=== PATIENT | female | born 1985 | race Caucasian/White ===

== ENCOUNTER 2023-07-08 20:21 | Emergency (ER) | payer OTHER, SELFPAY ==
[2023-07-08 20:26] VITALS: BP 160/95; PULSE 105; RESP 16; TEMP 36.9; O2SAT 98; BMI 41.2
--- NOTE | 2023-07-08 20:38 | XR_ITS ---
[place] [id number] Patient Name: MADAY WITT MRN: [id number] date: 1985 Sex: F Assigned Patient Location: ER Current Patient Location: ED.MAIN Accession/Order Number: [id number] Exam Date: 07/08/2023 20:40 Report Date: 07/08/2023 21:44 At the request of: SILVIA BROCK Procedure: XR chest 1V EXAM: XR chest 1V , 07/08/2023 HISTORY: Cough COMPARISON: None. TECHNIQUE: Portable AP upright x-ray of the chest. FINDINGS: Cardiac silhouette within normal limits. No hilar or mediastinal enlargement. The lungs and costophrenic angles are clear. No acute osseous findings. XR/XR chest 1V IMPRESSION: No acute cardiopulmonary findings. Electronically authenticated by: LEDA LEWIS Date: 07/08/2023 21:44
--- NOTE | 2023-07-08 20:38 | ED_ITS ---
HPI - General Adult General Chief complaint: Abdominal Pain Stated complaint: NAUSEA, MULTIPLE SYMPTOMS Time Seen by Provider: 07/08/23 20:29 Source: patient Mode of arrival: walk-in Limitations: no limitations History of Present Illness HPI narrative: Patient is a 38-year-old female presents to the emergency department for a 1 week history of multiple complaints. She states last week she noted cough and congestion that seem to improve with xaeo-uck-zxerpzm medications. 3 days later she had return of the nasal congestion, cough as well as nausea, headache, diarrhea. She presents to the ER today because she is concerned she may not be able to go to work. She has had no objective fevers. Her brother had pinkeye several weeks ago. She apparently had a COVID exposure in the last several weeks. She is not concerned for . She states she has some abdominal cramping as she started her menstrual cycle today. She has not had any urinary symptoms. Related Data Previous Rx's Medication Instructions Recorded azithromycin 250 mg tablet See Rx Instructions PO .COMPLEX #6 07/08/23 (Zithromax Z-Alli) tabs xfipjgfzvuhoecz-agetpyifpvrvcjw-JY 10 ml PO Q6H PRN cold symptoms 07/08/23 2 mg-30 mg-10 mg/5 mL oral syrup #200 mL (Bromfed DM) ondansetron 4 mg disintegrating 4 mg PO Q6H PRN nausea and 07/08/23 tablet vomiting #12 tabs Allergies Allergy/AdvReac Type Severity Reaction Status Date / Time No Known Drug Allergies Allergy Verified 07/08/23 20:26 Review of Systems ROS Constitutional Reports: chills; Denies: fever Ears, nose, mouth, and throat Reports: nasal congestion; Denies: throat pain Cardiovascular Denies: chest pain Respiratory Reports: cough; Denies: shortness of breath Gastrointestinal Reports: abdominal pain, nausea and diarrhea; Denies: vomiting Genitourinary Denies: painful urination Musculoskeletal Denies: back pain or neck pain Integumentary/Breast Denies: rash Neurological Reports: headache PFSH PFSH Social History Smoking status: Never smoker Exam Narrative Exam Narrative: Gen.: Awake, alert, in no distress Head: Normocephalic, atraumatic ENT: Moist mucous membranes, Bilateral TMs clear with normal pharynx, clear speech, no pharyngeal erythema or tonsillar edema. Respiratory: No respiratory distress, lungs clear bilaterally; Mild dry cough no bryan with no wheezing or rhonchi Cardio: Regular rate and rhythm Gastrointestinal: Abdomen is soft, nondistended and nontender to palpation Extremities: Moves extremities equally Psych: Normal mood and affect Neuro: No focal neuro deficit Skin: Warm, dry, intact Constitutional Vital Signs, click to edit/add: Last Vital Signs Temp 99.1 F 07/08/23 21:36 Pulse 89 07/08/23 21:36 Resp 16 07/08/23 21:36 BP 129/88 07/08/23 21:36 Pulse Ox 97 07/08/23 21:36 O2 Del Method Room Air 07/08/23 21:36 Course Vital Signs Vital signs: Vital Signs Temperature 98.4 F 07/08/23 20:26 Pulse Rate 105 H 07/08/23 20:26 Respiratory Rate 16 07/08/23 20:26 Blood Pressure 160/95 H 07/08/23 20:26 Pulse Oximetry 98 07/08/23 20:26 Oxygen Delivery Method Room Air 07/08/23 20:26 Temperature 99.1 F 07/08/23 21:36 Pulse Rate 89 07/08/23 21:36 Respiratory Rate 16 07/08/23 21:36 Blood Pressure 129/88 07/08/23 21:36 Pulse Oximetry 97 07/08/23 21:36 Oxygen Delivery Method Room Air 07/08/23 21:36 Medical Decision Making MDM Narrative Medical decision making narrative: COVID and flu testing is negative and chest x-ray with no evidence of acute cardiopulmonary changes. Patient with stable vital signs in the emergency department. Should be treated based on the duration of her symptoms with azithromycin, Decadron and discharged home with a Z-Alli, Bromfed-DM and Zofran. She is stable vitals in the ER, work note provided. Follow-up with PCP and return to the ER if symptoms change or worsen Medical Records Medical records reviewed: Yes I reviewed the patient's medical records Lab Data Lab results reviewed: Yes I reviewed the patient's lab results Labs: Lab Results 07/08/23 Range/Units 20:33 Influenza Type A Ag Negative Influenza Type B Ag Negative SARS-CoV-2 Ag (CV2AG) Negative (NEGATIVE) Imaging Data Chest x-ray: Attestation: I have reviewed the pertinent imaging results. Radiologist's impression: ITS Impressions Chest X-Ray 07/08/23 20:38 IMPRESSION: No acute cardiopulmonary findings. Electronically authenticated by: LEDA LEWIS Date: 07/08/2023 21:44 Discharge Plan Discharge Chief Complaint: Abdominal Pain Clinical Impression: Upper respiratory infection Patient Disposition: Home, Self-Care Time of Disposition Decision: 21:40 Condition: Good Mode of Transportation: Private Vehicle Prescriptions / Home Meds: New azithromycin [Zithromax Z-Alli] 250 mg tablet See Rx Instructions .ROUTE .COMPLEX Qty: 6 0RF Rx Instructions: For 250 mg dose pack: take 500 mg today (day 1), then 250 mg for 4 days (days 2-5) qqkjlkrefaxrmsl-ewgkwokqz-II [Bromfed DM] 2-30-10 mg/5 mL syrup 10 ml PO Q6H PRN (Reason: cold symptoms) Qty: 200 0RF ondansetron 4 mg tablet,disintegrating 4 mg PO Q6H PRN (Reason: nausea and vomiting) Qty: 12 0RF Instructions: Upper Respiratory Infection (ED) Stand Alone Forms: Portal Instructions Referrals: Physician,Non-Staff, MD [Primary Care Provider] - 1 week Discharge Date/Time: 07/08/23 21:54
[2023-07-08] MEDS: ONDANSETRON 4 MG RAPDIS TABLET SL (21:03)
[2023-07-08 21:05] LABS: Influenza Virus A Antigen Negative; Influenza Virus B Antigen Negative; Internal Control Within Normal Limits; SARS-CoV-2 Ag NEGATIVE (NEGATIVE)
[2023-07-08 21:36] VITALS: BP 129/88; PULSE 89; RESP 16; TEMP 37.3; O2SAT 97
[2023-07-08] MEDS: AZITHROMYCIN 250 MG TABLET 500 MG PO (21:49)
[2023-07-08] MEDS: DEXAMETHASONE SOD PHOS 10 MG/ML VIAL PO (21:49)
== END 2023-07-08 21:54 | disposition home or self-care (01) ==
PROVIDERS: Physician Assistant; Emergency Provider Internal Medicine
DX: J06.9 Acute upper respiratory infection, unspecified (principal); Z20.822 Contact with and (suspected) exposure to COVID-19
CPT/HCPCS: 71045; 87804; 87811; 99284; J1100; Q0162

== ENCOUNTER 2023-10-01 08:15 | Emergency (ER) | payer OTHER, SELFPAY ==
[2023-10-01 08:17] VITALS: BP 142/92; PULSE 89; TEMP 36.8; O2SAT 100; BMI 42.9
--- NOTE | 2023-10-01 08:29 | ED.ANXIETY1 ---
HPI - Anxiety General Chief Complaint: Nausea/Vomiting/Diarrhea Stated Complaint: NAUSEOUS Time Seen by Provider: 10/01/23 08:17 Source: patient Mode of arrival: walk-in Limitations: no limitations History of Present Illness HPI narrative: Patient had an upsetting conversation last night, which led to nausea. She said that she frequently gets nauseous when she gets upset or anxious. She presents this morning, still with some anxiety and nausea. She said that she called off work and asks for a work excuse. No other complaints. No recent injury or illness. No urinary or bowel changes. She is currently on her menstrual period. She does not have a local PCP. Related Data Previous Rx's ?Medication ?Instructions ?Recorded ondansetron 4 mg disintegrating 4 mg PO Q6H PRN nausea and 10/01/23 tablet vomiting #10 tabs Allergies Allergy/AdvReac Type Severity Reaction Status Date / Time No Known Drug Allergies Allergy Verified 07/08/23 20:26 PFSH PFSH Social History Smoking status: Never smoker Exam Narrative Exam Narrative: Nurses notes and vital signs reviewed and patient is not hypoxic. afebrile General: Well-appearing and in no apparent distress. Skin: Warm, dry, no pallor noted. No rash. Eye: Pupils are equal, round and EOMI. No scleral icterus. Cardiovascular: Regular Rate and Rhythm without murmur, gallop or rub. Respiratory: No accessory muscle use or respiratory distress. Lungs are clear to auscultation, no wheezing, rales or rhonchi Chest Wall: no tenderness Back: No CVA tenderness Musculoskeletal: normal ROM GI: Abdomen is soft, non-distended. Normal bowel sounds. No masses appreciated. No tenderness to palpation. No rebound, guarding, or rigidity noted. Neurological: A&O x4. No cranial nerve dysfunction observed. No truncal ataxia. Moves all extremities. Sensation intact. Psychiatric: Cooperative and interactive. Normal mood and affect. Constitutional Vital Signs, click to edit/add: Last Vital Signs Temp 98.3 F 10/01/23 08:17 Pulse 89 10/01/23 08:17 Resp 18 10/01/23 08:17 BP 142/92 H 10/01/23 08:17 Pulse Ox 100 10/01/23 08:17 O2 Del Method Room Air 10/01/23 08:17 Course Vital Signs Vital signs: Vital Signs Temperature 98.3 F 10/01/23 08:17 Pulse Rate 89 10/01/23 08:17 Respiratory Rate 18 10/01/23 08:17 Blood Pressure 142/92 H 10/01/23 08:17 Pulse Oximetry 100 10/01/23 08:17 Oxygen Delivery Method Room Air 10/01/23 08:17 Temperature 98.3 F 10/01/23 08:17 Pulse Rate 89 10/01/23 08:17 Respiratory Rate 18 10/01/23 08:17 Blood Pressure 142/92 H 10/01/23 08:17 Pulse Oximetry 100 10/01/23 08:17 Oxygen Delivery Method Room Air 10/01/23 08:17 MDM - Anxiety MDM Narrative Medical decision making narrative: She was given zofran for nausea. Exam unremarkable.She was given reassurance and discharged home with prescription for additional zofran and referral information for PCPs taking new patients,. Discharge Plan Discharge Stand Alone Forms: Portal Instructions Chief Complaint: Nausea/Vomiting/Diarrhea Clinical Impression: Acute anxiety, Nausea Patient Disposition: Home, Self-Care Time of Disposition Decision: 08:28 Prescriptions / Home Meds: New ondansetron 4 mg tablet,disintegrating 4 mg PO Q6H PRN (Reason: nausea and vomiting) Qty: 10 0RF Print Language: Croatian Instructions: Anxiety (ED) Referrals: Physician,Non-Staff, MD [Primary Care Provider] - 1 week
[2023-10-01] MEDS: ONDANSETRON 4 MG RAPDIS TABLET SL (08:38)
--- OUTSIDE RECORDS SUMMARY | 2023-10-01 08:51 | XMS_ITS | CCD ---
Author Organization [facility] Care Team Providers Care Senior Application Security Consultant Name Role Phone TERRIE CERVANTES Admitting Unavailable TERRIE CERVANTES Attending Unavailable REQUEST, NONE LISTED Primary Care Unavailable TERRIE CERVANTES Consulting Unavailable Problems Problem Classification Problem Date Documented Da te Episodic/Chronic Spondylosis; intervertebral disc disorders; other back problems (3 sources) Low back pain; Translations: [LOW BACK PAIN] Onset: 03-28-2020 Episodic Sprains and strains (1 source) Sprain of ligaments of lumbar spine, initial encounter; Translations: [SPRAIN LIGAMENTS LUMBAR SPN INITIAL] Onset: 03-30-2020 Episodic Results Test Name Value Interpretation Reference Range Facil ity ER URINE PROFILEon 0 Bilirubin [Mass/Vol] Negative Normal NEGATIVE [facility] Comment on above: Performed By: #### E RUR #### [facility] [address] [place] [address] Saurav Nikki BLOOD Negative Normal NEGATIVE [facility] Comment on above: Performed By: #### E RUR #### [facility] [address] [place], [place] [id number] Suarav Nikki Clarity (U) CLEAR Normal [facility] Comment on above: Performed By: #### E RUR #### [facility] [address] [place], [place] [id number] Saurav Nikki Color (U) LT. YELLOW Normal YELLOW [facility] Comment on above: Performed By: #### E RUR #### [facility] [address] [place], [place] [id number] Saurav Nikki ERUAHD A micrscopic examination will be performed if indicated. Normal [facility] Comment on above: Performed By: #### E RUR #### [facility] [address] [place], [place] [id number] Saurav Nikki Glucose [Mass/Vol] Negative Normal NEGATIVE [facility] Comment on above: Performed By: #### E RUR #### [facility] [address] [place], [place] [id number] Saurav Nikki Ketones Ql (U) Negative Normal NEGATIVE [facility] Comment on above: Performed By: #### E RUR #### [facility] [address] [place], [place] [id number] Saurav Nikki Nitrite Ql (U) Negative Normal NEGATIVE [facility] Comment on above: Performed By: #### E RUR #### [facility] [address] [place] [address] Saurav Nikki pH (Bld) 7.5 Normal 5-9 [facility] Comment on above: Performed By: #### E RUR #### [facility] [address] [place] [address] Saurav Nikki Protein (U) [Mass/Vol] Negative Normal [facility] Comment on above: Performed By: #### E RUR #### [facility] [address] [place] [address] Saurav Nikki SPEC GRAVITY 1.020 Normal 1.005-<=1.025 [facility] Comment on above: Performed By: #### E RUR #### [facility] [address] [place] [address] Saurav Nikki UR MICRO IND NOT INDICATED Normal [facility] Comment on above: Performed By: #### E RUR #### [facility] [address] [place] [address] Saurav Nikki Urobilinogen Qn (U) 0.2 EU/dl Normal [facility] Comment on above: Performed By: #### E RUR #### [facility] [address] [place], [place] [id number] Saurav Nikki WBC (Bld) [#/Vol] Negative Normal NEGATIVE [facility] Comment on above: Performed By: #### E RUR #### [facility] [address] [place], [place] [id number] Saurav Nikki Encounters Encounter Date Encounter Type Care Provider Facility Start: 03-28-2020 End: 03-28-2020 Patient encounter procedure TERRIE CERVANTES Facility:[facility] Payers Date Payer Category Payer Unknown [id number] 1958 Unknown [id number] Summary Purpose Family History No Family History Records Found Advance Directives No Advanced Directives Records Found Additional Source Comments INFORMATION SOURCE (unrecogn ized section and content) DATE CREATED AUTHOR 03/30/2020 [employer] FOR RECORDS PERTAINING TO PATIENTS WHO ARE OR HAVE BEEN ENROLLED IN A CHEMICAL DEPENDENCY/SUBSTANCEABUSE PROGRAM, SOME INFORMATION MAY BE OMITTED. This clinical summary was aggregated from multiple sources. Caution should be exercised in using it in the provision of clinical care. This summary normalizes information from multiple sources, and as a consequence, information in this document may materially change the coding, format and clinical context of patient data. In addition, data may be omitted in some cases. CLINICAL DECISIONS SHOULD BE BASED ON THE PRIMARY CLINICAL RECORDS. [facility] [employer] provides no warranty or guarantee of the accuracy or completeness of information in this document.
== END 2023-10-01 09:13 | disposition home or self-care (01) ==
LOC: ER 08:34
PROVIDERS: Emergency Provider Emergency Medicine
DX: F41.9 Anxiety disorder, unspecified (principal); R11.0 Nausea
CPT/HCPCS: 99283

== ENCOUNTER 2025-01-16 21:49 | Emergency (ER) | payer SELFPAY ==
[2025-01-16 22:10] VITALS: BP 131/88; PULSE 96; TEMP 36.8; O2SAT 98; BMI 42.9
--- NOTE | 2025-01-16 22:18 | ED.GENADUL1 ---
HPI HPI - General Adult General Chief complaint: Extremity Problem, Nontraumatic Stated complaint: Elevated Vein Time Seen by Provider: 01/16/25 22:08 Source: patient Mode of arrival: walk-in Limitations: no limitations History of Present Illness HPI narrative: Patient is a 39-year-old female presenting to the emergency department for concerns of left arm pain. Patient is mainly concerned for a DVT as her mother from a PE. She states she had a elevated vein on her left forearm that she noticed 24 hours ago. She states it is mildly tender to the touch. She is also complaining of pain in her antecubital fossa. 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 She denies any fevers or chills. No leg swelling. No hemoptysis. No chest pain or shortness of breath. No history of malignancy or . No recent surgeries or immobilizations. She denies any numbness/tingling/weakness in the left upper extremity. Related Data Home Medications ?Medication ?Instructions ?Recorded ?Confirmed aspirin 81 mg tablet,delayed 81 mg PO DAILY 01/16/25 01/16/25 release (Adult Aspirin Regimen) Allergies Allergy/AdvReac Type Severity Reaction Status Date / Time No Known Drug Allergies Allergy Verified 01/16/25 22:07 Opioid HPI Opioid Management Most Recent Opioid Data: Last Pain Scale 6 Today, 22:10 Review of Systems ROS Status of ROS 10 or more systems reviewed and unremarkable except as noted in history and below [facility] Social History Smoking status: Never smoker Little interest or pleasure in doing things: not at all Feeling down, depressed, or hopeless: not at all Exam Narrative Exam Narrative: CONSTITUTIONAL: Well-appearing, answering questions and following commands appropriately SKIN: Warm and dry without rashes. EYES: Sclerae white. EARS, NOSE, THROAT: Moist oral mucosa. RESPIRATORY: Nonlabored respirations without audible wheezing or stridor CARDIOVASCULAR: Normal rate and regular rhythm. 2+ radial pulses bilaterally. GASTROINTESTINAL: Abdomen is nondistended. MUSCULOSKELETAL: The left upper extremity grossly appears normal. There is mild tenderness palpation of the left biceps tendon. Full range of motion of the left elbow. There is no erythema, induration, or cellulitic changes. There is no edema of the extremities. The left upper extremity feels warm and well-perfused. NEUROLOGIC: Patient is awake and alert. Good strength and sensation throughout the left upper extremity. Facies were symmetrical. Constitutional Vital Signs, click to edit/add: Last Vital Signs Temp 98.2 F 01/16/25 22:10 Pulse 96 H 01/16/25 22:10 Resp 20 01/16/25 22:10 BP 131/88 01/16/25 22:10 Pulse Ox 98 01/16/25 22:10 O2 Del Method Room Air 01/16/25 22:10 Course Vital Signs Vital signs: Vital Signs Temperature 98.2 F 01/16/25 22:10 Pulse Rate 96 H 01/16/25 22:10 Respiratory Rate 20 01/16/25 22:10 Blood Pressure 131/88 01/16/25 22:10 Pulse Oximetry 98 01/16/25 22:10 Oxygen Delivery Method Room Air 01/16/25 22:10 Temperature 98.2 F 01/16/25 22:10 Pulse Rate 96 H 01/16/25 22:10 Respiratory Rate 20 01/16/25 22:10 Blood Pressure 131/88 01/16/25 22:10 Pulse Oximetry 98 01/16/25 22:10 Oxygen Delivery Method Room Air 01/16/25 22:10 Medical Decision Making MDM Narrative Medical decision making narrative: Patient is a 39-year-old female presenting to the emergency department with a 24-hour history of left upper extremity pain, localized around the antecubital fossa. Her vital signs are within normal limits. She is afebrile and hemodynamically stable. Her examination is consistent with left biceps tendinitis, musculoskeletal pain. She has no injuries to suggest underlying fracture. There is full range of motion in the left upper extremity, low concern for tendon injury. Patient was concerned for DVT, however she does not clinically appear to have deep vein thrombosis and has a Wells score of 0 for DVT. There is no overlying cellulitic changes. I do not believe any imaging or diagnostic testing is warranted at this time. I do believe the patient is stable for discharge at this time. They were instructed to follow up with her PCP as needed. Return precautions were given including any new or worsening symptoms. They were instructed to take NSAIDs for symptoms. Patient understands and agrees to the plan. Differential Diagnosis Differential Diagnosis: bicep tendonitis, musculoskeletal pain Discharge Plan Discharge Chief Complaint: Extremity Problem, Nontraumatic Clinical Impression: Biceps tendinitis Qualifiers: Laterality: left Qualified Code(s): M75.22 - Bicipital tendinitis, left shoulder Patient Disposition: Home, Self-Care Time of Disposition Decision: 22:16 Condition: Good Prescriptions / Home Meds: No Action aspirin [Adult Aspirin Regimen] 81 mg tablet,delayed release (DR/EC) 81 mg PO DAILY Print Language: Turkish Instructions: Tendinitis (ED) Referrals: Physician,Non-Staff, MD [Primary Care Provider] - 1 week
--- OUTSIDE RECORDS SUMMARY | 2025-01-16 22:26 | XMS_ITS | CCD ---
Author Organization [facility] CliniSyvt Care Team Providers Care Javascript Software Engineer Name Role Phone TERRIE CERVANTES Admitting Unavailable TERRIE CERVANTES Attending Unavailable REQUEST, NONE LISTED Primary Care Unavailable TERRIE CERVANTES Consulting Unavailable Provider, None Primary Care Unavailable Kole Bonilla Attending Unavailable Kole Bonilla Admitting Unavailable DESIREE PANTOJA Attending Unavailable NO PCP, NO PCP Primary Care Unavailable Problems Active Problems Problem Classification Problem Date Documented Da te Episodic/Chronic Headache; including migraine (1 source) Headache; including migraine; Translations: [Headache, unspecified] Onset: 05-24-2024 Other upper respiratory infections (1 source) Acute sinusitis, unspecified; Translations: [Acute sinusitis, unspecified] Onset: 09-23-2024 Episodic Spondylosis; intervertebral disc disorders; other back problems (3 sources) Low back pain; Translations: [LOW BACK PAIN] Onset: 03-28-2020 Episodic Sprains and strains (1 source) Sprain of ligaments of lumbar spine, initial encounter; Translations: [SPRAIN LIGAMENTS LUMBAR SPN INITIAL] Onset: 03-30-2020 Episodic Unclassified (1 source) Dizzy Onset: 05-24-2024 Past or Other Problems Problem Classification Problem Date Documented Da te Episodic/Chronic Headache; including migraine (1 source) Headache Onset: 05-24-2024 Episodic Nausea and vomiting (1 source) Vomiting Onset: 05-24-2024 Episodic Results Test Name Value Interpretation Reference Range Facil ity SARS/FLU A+B/RSV by NAAT/Mol ecularon 09-23-2024 SARS/FLU A+B/RSV by NAAT/Molecular FLU A PCR Negative (qualifier value) FLU B PCR Negative (qualifier value) RSV by PCR Negative (qualifier value) SARS CoV 2 Not detected (qualifier value) NOTE The Xpert Xpress SARS-CoV-2/Flu/RSV Plus test is a rapid, multiplexed real-time RT-PCR test intended for the simultaneous qualitative detection and differentiation of SARS-CoV-2, influenza A, influenza B and respiratory syncytial virus (RSV) viral RNA from individuals suspected of respiratory viral infection consistent with COVID-19 by their healthcare provider. This test has not been validated in asymptomatic patients. The Xpert Xpress SARS-CoV-2 test is intended for use by qualified and trained operators who are performing tests using either [employer] or [employer] systems and is limited to laboratories that meet the CLIA requirements to perform high and moderate complexity tests. The Xpert Xpress SARS-CoV-2/Flu/RSV Plus is only for use under the Food and Drug Administration's Emergency Use Authorization. Results are for the simultaneous detection and differentiation of SARS-CoV-2, influenza A, influenza B and RSV nucleic acids in clinical specimens. SARS-CoV-2, influenza A, influenza B and RSV RNA identified by this test are generally detectable in upper respiratory samples during the acute phase of infection. Positive results are indicative of the presence of the identified virus, but do not rule out bacterial infection or co-infection with other pathogens not detected by this test. Clinical correlation with patient history and other diagnostic information is necessary to determine patient infection status. The agent detected may not be the definite cause of disease. Negative results do not preclude SARS-CoV-2, influenza A, influenza B and RSV infection and should not be used as the sole basis for treatment or other patient management decisions. Negative results must be combined with clinical observations, patient history and epidemiological information. An Invalid result may occur with specimen-associated inhibition unable to be resolved with specimen repeat. Fact Sheet for Healthcare Providers: https://www.fda.gov/m edia/814688/download Fact Sheet for Patients: https://www.fda.gov/m edia/004363/download [facility] Comment on above: Performed By: #### C OVMOR #### [facility] ([id number]) [address] [place] [address], [place] [address] Consent Formson 07-31-2024 Consent Forms [id number] [facility] BASIC METABOLIC PANLon 05-24 Anion gap [Moles/Vol] 9 mmol/L Normal 5-15 [facility] Comment on above: Performed By: #### C BCA, BMP #### [facility] ([id number]) [address] [place] [address]95 Calcium [Mass/Vol] 8.9 mg/dL Normal 8.5-10.5 [facility] Comment on above: Performed By: #### C BCA, BMP #### [facility] ([id number]) [address] [place] [address] 46492 Chloride [Moles/Vol] 107 mmol/L Normal 98-109 [facility] Comment on above: Performed By: #### C LORETTA, BMP #### [facility] ([id number]) [address] [place] [address] 84593 CO2 [Moles/Vol] 25 mmol/L Normal 22-32 [facility] Comment on above: Performed By: #### C BCA, BMP #### [facility] ([id number]) [address] [place] [address] 27388 Creatinine [Mass/Vol] 0.82 mg/dL Normal 0.40-1.00 [facility] Comment on above: Result Comment: METH OD TRACEABLE TO IDMS STANDARD Performed By: #### C LORETTA, BMP #### [facility] ([id number]) [address] [place] [address] 18362 eGFR (CKD-EPI) NON-RACE DEPENDENT >90 Normal >59 [facility] Comment on above: Result Comment: Reported eGFR is based on the CKD-EPI 2020 equation that does not use a race coefficient. Performed By: #### C BCA, BMP #### [facility] ([id number]) [address] [place] [address] 30541 Glucose [Mass/Vol] 121 mg/dL High 65-99 [facility] Comment on above: Performed By: #### C BCA, BMP #### [facility] ([id number]) [address] [place] [address] 49106 Potassium [Moles/Vol] 3.5 mmol/L Normal 3.5-5.0 [facility] Comment on above: Performed By: #### C LORETTA, BMP #### [facility] ([id number]) [address] [place] [address] 94007 Sodium [Moles/Vol] 141 mmol/L Normal 134-146 [facility] Comment on above: Performed By: #### C LORETTA, BMP #### [facility] ([id number]) [address] [place] [address] 97937 Urea nitrogen [Mass/Vol] 8 mg/dL Normal 5-23 [facility] Comment on above: Performed By: #### C LORETTA, BMP #### [facility] ([id number]) [address] [place] [address] 60959 CBC AND AUTO DIFFon 12-15-20 24 ABSOLUTE BASOPHIL 0.1 X10E9/L Normal 0.0-0.2 [facility] Comment on above: Performed By: #### C LORETTA, BMP #### [facility] ([id number]) [address] [place] [address] 44862 ABSOLUTE NEUTROPHIL 8.1 X10E9/L High 1.5-6.6 [facility] Comment on above: Performed By: #### C LORETTA, BMP #### [facility] ([id number]) [address] [place] [address] 02631 Basophils/100 WBC (Bld) 0.7 % Normal [facility] Comment on above: Performed By: #### C LORETTA, BMP #### [facility] ([id number]) [address] [place] [address] 17598 Eosinophils (Bld) [#/Vol] 0.1 10*3/uL Normal 0.0-0.4 [facility] Comment on above: Performed By: #### C BCA, BMP #### [facility] ([id number]) [address] [place] [address] 14959 Eosinophils/100 WBC (Bld) 0.7 % Normal [facility] Comment on above: Performed By: #### C BCA, BMP #### [facility] ([id number]) [address] [place] [address] 65276 Erythrocyte distribution width (RBC) [Ratio] 13.9 % Normal 11.5-15.0 [facility] Comment on above: Performed By: #### C LORETTA, BMP #### [facility] ([id number]) [address] [place] [address] 51780 Hematocrit (Bld) [Volume fraction] 37.2 % Normal 35-47 [facility] Comment on above: Performed By: #### C LORETTA, BMP #### [facility] ([id number]) [address] [place] [address] 06426 Hemoglobin (Bld) [Mass/Vol] 12.8 g/dL Normal 11.7-15.5 [facility] Comment on above: Performed By: #### C BCA, BMP #### [facility] ([id number]) [address] [place] [address] 25749 Lymphocytes (Bld) [#/Vol] 1.7 10*3/uL Normal 1.0-3.5 [facility] Comment on above: Performed By: #### C BCA, BMP #### [facility] ([id number]) [address] [place] [address] 55828 Lymphocytes/100 WBC (Bld) 15.6 % Normal [facility] Comment on above: Performed By: #### C BCA, BMP #### [facility] ([id number]) [address] [place] [address] 58093 MCH (RBC) [Entitic mass] 31.5 pg Normal 27-34 [facility] Comment on above: Performed By: #### C LORETTA, BMP #### [facility] ([id number]) [address] [place] [address] 24460 MCHC (RBC) [Mass/Vol] 34.3 g/dL Normal 32-36 [facility] Comment on above: Performed By: #### C BCA, BMP #### [facility] ([id number]) [address] [place] [address] 19158 MCV (RBC) [Entitic vol] 92 fL Normal 80-100 [facility] Comment on above: Performed By: #### C LORETTA, BMP #### [facility] ([id number]) [address] [place] [address] 81209 Monocytes (Bld) [#/Vol] 0.9 10*3/uL Normal 0-0.9 [facility] Comment on above: Performed By: #### C LORETTA, BMP #### [facility] ([id number]) [address] [place] [address] 76052 Monocytes/100 WBC (Bld) 8.3 % Normal [facility] Comment on above: Performed By: #### C BCA, BMP #### [facility] ([id number]) [address] [place] [address] 89884 Neutrophils/100 WBC (Bld) 74.7 % Normal [facility] Comment on above: Performed By: #### C BCA, BMP #### [facility] ([id number]) [address] [place] [address] 36084 Platelet mean volume (Bld) [Entitic vol] 7.8 fL Normal 7-12 [facility] Comment on above: Performed By: #### C BCA, BMP #### [facility] ([id number]) [address] [place] [address] 48518 Platelets (Bld) [#/Vol] 337 10*3/uL Normal 150-450 [facility] Comment on above: Performed By: #### C LORETTA, BMP #### [facility] ([id number]) [address] [place] [address] 63116 RBC COUNT 4.06 X10E12/L Normal 3.80-5.20 [facility] Comment on above: Performed By: #### C LORETTA, BMP #### [facility] ([id number]) [address] [place] [address] 62382 WBC (Bld) [#/Vol] 10.8 10*3/uL Normal 4.0-11.0 [facility] Comment on above: Performed By: #### C LORETTA, BMP #### [facility] ([id number]) [address] [place] [address] BRAIN WO CONTon 4 CT BRAIN WO CONT CT BRAIN WO CONT CT BRAIN WO CONT CLINICAL HISTORY: Headache, sudden, severe COMPARISON: None. TECHNIQUE: CT head was performed without contrast using the standard protocol. Automated exposure control was utilized. FINDINGS: No acute, territorial region of diminished watts-white differentiation. No acute intracranial hemorrhage. No sign of ventricular outflow obstruction. Flat pituitary. Unremarkable temporal bone structures, visualized suprahyoid neck. Minimal mucosal thickening left ethmoid air cells. Unremarkable orbits, scalp soft tissues. IMPRESSION: 1. No acute intracranial abnormality, by CT. 2. Flat pituitary, which may be seen in setting of intracranial hypertension. All CT scans at this facility use dose modulation, iterative reconstruction, and/or weight based dosing when appropriate to reduce radiation dose to as low as reasonably achievable. Finalized by Bao Nguyen MD on 05/24/2024 11:47 PM Normal [facility] ER URINE PROFILEon 0 Bilirubin [Mass/Vol] Negative Normal NEGATIVE [facility] Comment on above: Performed By: #### E RUR #### [facility] [address] [place] [address] Saurav Nikki BLOOD Negative Normal NEGATIVE [facility] Comment on above: Performed By: #### E RUR #### [facility] [address] [place] [address] Saurav Nikki Clarity (U) CLEAR Normal [facility] Comment on above: Performed By: #### E RUR #### [facility] [address] [place], [place] [address] Saurav Nikki Color (U) LT. YELLOW Normal YELLOW [facility] Comment on above: Performed By: #### E RUR #### [facility] [address] [place] [address] Saurav Nikki ERUAHD A micrscopic examination will be performed if indicated. Normal [facility] Comment on above: Performed By: #### E RUR #### [facility] [address] [place] [address] Saurav Nikki Glucose [Mass/Vol] Negative Normal NEGATIVE [facility] Comment on above: Performed By: #### E RUR #### [facility] [address] [place] [address] Saurav Nikki Ketones Ql (U) Negative Normal NEGATIVE [facility] Comment on above: Performed By: #### E RUR #### [facility] [address] [place] [address] Saurav Nikki Nitrite Ql (U) Negative Normal NEGATIVE [facility] Comment on above: Performed By: #### E RUR #### [facility] [address] [place] [address] Saurav Nikki pH (Bld) 7.5 Normal 5-9 [facility] Comment on above: Performed By: #### E RUR #### [facility] [address] [place] [address] Saurav Nikki Protein (U) [Mass/Vol] Negative Normal [facility] Comment on above: Performed By: #### E RUR #### [facility] [address] [place] [address] Saurav Nikki SPEC GRAVITY 1.020 Normal 1.005-<=1.025 [facility] Comment on above: Performed By: #### E RUR #### [facility] [address] [place], [place] [address] Saurav Jordan UR MICRO IND NOT INDICATED Normal [facility] Comment on above: Performed By: #### E RUR #### [facility] [address] [place], [place] [address] Saurav Jordan Urobilinogen Qn (U) 0.2 EU/dl Normal [facility] Comment on above: Performed By: #### E RUR #### [facility] [address] [place], [place] [address] Saurav Jordan WBC (Bld) [#/Vol] Negative Normal NEGATIVE [facility] Comment on above: Performed By: #### E RUR #### [facility] [address] [place], [place] [address] Saurav Jordan Vital Signs Date Time Vital Sign Value Performing Clinician Faci lity 12-05-2023 13:22-0400 Body height 162.56 cm [facility] 12-05-2023 13:22-0400 Body mass index (BMI) [Ratio] 43.7 kg/m2 [facility] [place] 12-05-2023 13:22-0400 Body temperature 99 [degF] [facility] 12-05-2023 13:22-0400 Body weight 115.38 kg [facility] 12-05-2023 13:22-0400 Diastolic blood pressure 74 mm[Hg] [facility] [place] 12-05-2023 13:22-0400 Heart rate 104 /min [facility] 12-05-2023 13:22-0400 Respiratory rate 18 /min [facility] 12-05-2023 13:22-0400 SaO2% (BldA) [Mass fraction] 98 % [facility] [place] 12-05-2023 13:22-0400 Systolic blood pressure 105 mm[Hg] [facility] [place] Encounters Encounter Date Encounter Type Care Provider Facility Start: 09-23-2024 End: 09-23-2024 Emergency department patient visit NO PCP NO PCP [facility] Start: 07-30-2024 ambulatory None Provider Facility: [facility] Start: 05-24-2024 End: 05-25-2024 Emergency department patient visit DESIREE PANTOJA [facility] Start: 12-05-2023 End: 12-05-2023 ambulatory [facility] Work Phone: Start: 12-05-2023 End: 12-05-2023 Patient encounter procedure [facility] Work Phone: Start: 03-28-2020 End: 03-28-2020 Patient encounter procedure TERRIE CERVANTES Facility: Payers Date Payer Category Payer Unknown [id number] 1985 Unknown [id number] 1985 Unknown [id number] 1958 Unknown [id number] Medicaid [facility] [id number] Private Health Insurance [facility] [id number] Self-pay Self Pay [id number] Social History Date Type Detail Facility Tobacco smoking stat [facility] Unknown if ever smoked [facility] Work Phone: Start: 1985 Sex Assigned At Female F [facility] History and physical note 07-31-2024 Note Date & Type Note Facility 07-31-2024 Note [id number] [facility] Evaluation note Note Date & Type Note Facility Evaluation note No assessment information availa ble [facility] Work Phone: Summary Purpose Family History No Family History Records FoundNo Family History Records FoundNo Family History Records Found Advance Directives No Advanced Directives Records Found Advance Directive Response Recorded Date/ Time Advance Directives No April 09, 2018 3:04pm Chief Complaint and Reason for Visit Chief Complaint Right knee injury Additional Source Comments INFORMATION SOURCE (unrecogn ized section and content) DATE CREATED AUTHOR 03/30/2020 [facility] DATE CREATED AUTHOR AUTHOR'S ORGANIZ ATION 08/01/2024 [facility] DATE CREATED AUTHOR AUTHOR'S ORGANIZ ATION 09/25/2024 [facility] Care Teams (unrecognized sec tion and content) Team Status: Active Member Role Status Dates PHYSICIAN NO FAMILY Primary Care Provider Active Team Status: Inactive Member Role Status Dates Amberly Solano APRN Attending Provider Active Start: December 05, 2023 End: December 05, 2023 PHYSICIAN NO FAMILY Primary Care Provider Active Start: December 05, 2023 End: December 05, 2023 Goals (unrecognized section and content) Goals may be documented in a n alternate section FOR RECORDS PERTAINING TO PATIENTS WHO ARE [...] BE BASED ON THE PRIMARY CLINICAL RECORDS. [employer] provides no warranty or guarantee of the accuracy or completeness of information in this document.
== END 2025-01-16 22:30 | disposition home or self-care (01) ==
PROVIDERS: Emergency Provider Student in an Organized Health Care Education/Training Program
DX: M75.22 Bicipital tendinitis, left shoulder (principal); M79.622 Pain in left upper arm
CPT/HCPCS: 99282